=== PATIENT | male | born 1980 | race Caucasian/White ===

== ENCOUNTER 2024-10-03 10:13 | Emergency (ER) | payer OTHER ==
[2024-10-03] VITALS (14 sets, daily range): BP systolic 132–184; BP diastolic 94–152
[~2024-10-03] VITALS: Ht 177.8 cm; Wt 133.0 kg
[2024-10-03] MEDS ORDERED: KETOROLAC TROMETHAMINE 30 MG/ML SDV IV ONE (10:50)
[2024-10-03] MEDS ORDERED: SODIUM CHLORIDE 0.9% 1,000 ML IV ONE (10:50)
[2024-10-03] MEDS ORDERED: METOCLOPRAMIDE HCL 10 MG/2 ML SDV IV ONE (10:50)
[2024-10-03 11:07] LABS: BASO% 0.5 % (0-3); EOS% 1.9 % (0-8); HEMATOCRIT 47.9 % (39.0-50.0); HEMOGLOBIN 15.9 g/dl (14.0-18.0); LYMPH% 26.5 % (15-41); MEAN CELL VOLUME 87.1 fL CALC (80.0-100.0); MEAN CORPUSCULAR HGB 28.9 pG CALC (26.0-32.0); MEAN CORPUSCULAR HGB CONC 33.2 g/dL CAL (32.0-36.0); MONO% 8.7 % (2-13); NEUT# 5.29 thou/uL (1.82-7.42); NEUT% 61.4 % (42-76); RED BLOOD COUNT 5.5 mill/uL (4.70-6.10)
[2024-10-03 11:11] LABS: ALBUMIN 4.4 g/dL (3.2-5.0); ALKALINE PHOSPHATASE 67 u/l (38-126); ANION GAP 11 (6-22 (CALC)); BILIRUBIN, TOTAL 0.7 mg/dL (0.2-1.3); BUN 13 mg/dL (9-20); BUN/CREATININE RATIO 15 (12-20 (CALC)); CARBON DIOXIDE 26 mmol/l (22-30); CHLORIDE 104 mmol/l (95-108); CREATININE 0.8 mg/dL (0.7-1.3); ESTIMATED GFR 113 ML/MIN (>=90 (CALC)); POTASSIUM 3.5 mmol/l (3.5-5.1); SGOT/AST 47 u/l (17-59); SODIUM 137 mmol/l (137-146); TOTAL PROTEIN 7.7 g/dL (6.3-8.2)
[2024-10-03] MEDS ORDERED: cloNIDine HCL 0.1 MG/TAB PO ONE ×2 (13:10→14:10)
[2024-10-03] MEDS ORDERED: LISINOPRIL40 MG PO (16:20)
== END 2024-10-03 16:38 | disposition home or self-care (01) ==
LOC: ED 10:13
PROVIDERS: Emergency Medicine
DX: I16.0 Hypertensive urgency (principal); I10 Essential (primary) hypertension
CPT/HCPCS: J2765